=== PATIENT | male | born 1955 | race Caucasian/White ===

== ENCOUNTER 2020-12-03 09:20 | Emergency (ER) | payer OTHER ==
[2020-12-03 09:31] VITALS: PULSE 44
[2020-12-03] MEDS ORDERED: Aspirin 81 MG Tab.Chew PO ONE (09:38)
[2020-12-03] MEDS ORDERED: Sodium Chloride 0.9% 10 ML Syringe FLUSH PRN (09:38)
--- NOTE | 2020-12-03 09:57 | EDM.PDOC ---
ED HPI GENERAL MEDICAL PROBLEM - General Chief Complaint: Chest Pain Stated Complaint: CHEST PAIN/SOB/ARM PAIN Time Seen by Provider: 12/03/20 09:31 Source of Information: Reports: Patient, RN Notes Reviewed - History of Present Illness INITIAL COMMENTS - FREE TEXT/NARRATIVE: 64 yr old male with onset of R sided chest pain last evening, continues today. slight radiation to L arm. Was doing a lot of lifting a couple of days ago. No known hx of heart or lung problems or other known medical problems. He does smoke. Right Chest Pain Score (Numeric/FACES): 7 - Related Data Allergies Allergy/AdvReac Type Severity Reaction Status Date / Time No Known Allergies Allergy Verified 12/03/20 09:31 Home Meds: Home Meds . [No Known Home Meds] 09/16/15 [History] Past Medical History HEENT History: Reports: Impaired Vision Musculoskeletal History: Reports: Fracture - Past Surgical History Neurological Surgical History: Reports: Lumbar Spine Musculoskeletal Surgical History: Reports: Other (See Below) Other Musculoskeletal Surgeries/Procedures:: pins to the left hand and screws in right hand, leg surgery Social & Family History - Family History Family Medical History: No Pertinent Family History - Tobacco Use Tobacco Use Status *Q: Current Every Day Tobacco User Years of Tobacco use: 45 Packs/Tins Daily: 1 - Caffeine Use Caffeine Use: Reports: Coffee, Energy Drinks - Recreational Drug Use Recreational Drug Use: Yes Recreational Drug Type: Reports: Marijuana/Hashish ED ROS GENERAL - Review of Systems Review Of Systems: See Below Constitutional: Denies: Fever, Chills, Diaphoresis HEENT: Reports: No Symptoms Respiratory: Reports: Pleuritic Chest Pain (slight), Cough (occasional). Denies: Shortness of Breath Cardiovascular: Reports: Chest Pain GI/Abdominal: Denies: Abdominal Pain, Nausea, Vomiting Musculoskeletal: Reports: Arm Pain (mild R arm). Denies: Shoulder Pain Skin: Denies: Rash Neurological: Reports: Numbness (Mild R arm) ED EXAM, GENERAL - Physical Exam Exam: See Below General Appearance: Alert, No Apparent Distress Head: Atraumatic Neck: Supple Respiratory/Chest: No Respiratory Distress, Lungs Clear, Normal Breath Sounds, Other (Mild tenderness R ant mid chest). No: Rales, Rhonchi, Wheezing GI/Abdominal: Soft, Non-Tender Back Exam: No: CVA Tenderness (L), CVA Tenderness (R) Extremities: Normal Inspection. No: Pedal Edema, Leg Pain, Increased Warmth, Redness Neurological: Alert, Oriented, No Motor/Sensory Deficits Skin Exam: Warm, Dry, Normal Color #1 Interpretation EKG Date: 12/03/20 Rhythm: Other (sinus bradycardia) Rate (Beats/Min): 47 [place]: Normal P-Wave: Present QRS: Normal ST-T: Normal QT: Normal #2 Interpretation EKG Date: 12/03/20 Time: 10:45 Rhythm: NSR [place]: Normal P-Wave: Present QRS: Normal ST-T: Elevated (about [address] elevation leads II and III.) Course - Vital Signs Last Recorded V/S: Last Vital Signs Temp 97.4 F 12/03/20 11:10 Pulse 44 L 12/03/20 09:26 Resp 15 12/03/20 11:10 BP 139/79 12/03/20 11:10 Pulse Ox 98 12/03/20 11:10 - Orders/Labs/Meds Orders: Active Orders 24 hr Category Date Time Status Peripheral IV Insertion Adult [OM.PC] Stat Oth 12/03/20 09:37 Ordered Labs: Laboratory Tests 12/03/20 12/03/20 Range/Units 09:25 09:25 WBC 11.17 H (4.23-9.07) K/mm3 RBC 5.37 (4.63-6.08) M/mm3 Hgb 17.8 H (13.7-17.5) gm/dl Hct 53.1 H (40.1-51.0) % MCV 98.9 H (79.0-92.2) fl MCH 33.1 H (25.7-32.2) pg MCHC 33.5 (32.2-35.5) g/dl RDW Std Deviation 53.3 H (35.1-43.9) fL Plt Count 277 (163-337) K/mm3 MPV 11.0 (9.4-12.3) fl Neut % (Auto) 78.8 H (34.0-67.9) % Lymph % (Auto) 9.8 L (21.8-53.1) % [place] % (Auto) 10.4 (5.3-12.2) % Eos % (Auto) 0.4 L (0.8-7.0) Baso % (Auto) 0.4 (0.1-1.2) % Neut # (Auto) 8.80 H (1.78-5.38) K/mm3 Lymph # (Auto) 1.10 L (1.32-3.57) K/mm3 [place] # (Auto) 1.16 H (0.30-0.82) K/mm3 Eos # (Auto) 0.05 (0.04-0.54) K/mm3 Baso # (Auto) 0.04 (0.01-0.08) K/mm3 Manual Slide Review Abnormal smear Sodium 139 (136-145) mEq/L Potassium 4.3 (3.5-5.1) mEq/L Chloride 103 (98-107) mEq/L Carbon Dioxide 26 (21-32) mEq/L Anion Gap 14.3 (5-15) BUN 7 (7-18) mg/dL Creatinine 0.9 (0.7-1.3) mg/dL Est Cr Clr Drug Dosing 72.84 mL/min Estimated GFR (MDRD) > 60 (>60) mL/min BUN/Creatinine Ratio 7.8 L (14-18) Glucose 124 H (70-99) mg/dL Calcium 8.8 (8.5-10.1) mg/dL Total Bilirubin 0.3 (0.2-1.0) mg/dL AST 97 H (15-37) U/L ALT 40 (16-63) U/L Alkaline Phosphatase 101 (46-116) U/L Troponin I 5.757 H* (0.00-0.056) ng/mL Total Protein 7.5 (6.4-8.2) g/dl Albumin 4.0 (3.4-5.0) g/dl Globulin 3.5 gm/dL Albumin/Globulin Ratio 1.1 (1-2) Meds: Medications Discontinued Medications Generic Name Dose Route Start Last Admin Trade Name Freq PRN Reason Stop Dose Admin Aspirin 324 mg 12/03/20 09:38 12/03/20 09:52 Aspirin 81 Mg Tab.Chew PO 12/03/20 09:39 324 mg ONETIME ONE Administration Heparin Sodium (Porcine) 3,600 units 12/03/20 10:23 12/03/20 10:30 Heparin Sodium 5,000 Units/Ml Vial IVPUSH 12/03/20 10:24 3,600 units .BOLUS ONE Administration Nitroglycerin/Dextrose 25 mg in 250 mls @ 3 mls/hr 12/03/20 10:15 12/03/20 10:32 Nitroglycerin 25 Mg/D5w 250 Ml IV 5 mcg/min TITRATE QI 3 mls/hr Administration Protocol 5 MCG/MIN Heparin Sodium/Dextrose 25,000 units in 500 mls @ 14.522 mls/hr 12/03/20 10:30 12/03/20 10:31 Heparin 25,000 Units In D5w 500 Ml IV 12 units/kg/hr TITRATE QI 14.522 mls/hr Administration Protocol 12 UNITS/KG/HR Sodium Chloride 1,000 mls @ 150 mls/hr 12/03/20 10:45 Normal Saline IV ASDIRECTED QI Sodium Chloride 10 ml 12/03/20 09:38 12/03/20 09:55 Sodium Chloride 0.9% 10 Ml Syringe FLUSH 10 ml ASDIRECTED PRN Administration Keep Vein Open - Re-Assessments/Exams Free Text/Narrative Re-Assessment/Exam: 12/03/20 10:30. EKG shows slight st elevation, about 0.5 mm leads II and III. Trop has come back elevated at 5.76. CXR nl. Does not look uncomfortable but does still rate the pain a 5. Have ordered nitro drip and heparin for nonStemi protocol. [facility] unable to transfer "until this evening". [facility] unavailable today. Carmelo is coming down to do that. He will go by ground ambulance to [facility] ED, Dr Dobson accepting Phys. Departure - Departure Time of Disposition: 10:41 Disposition: DC/Tfer to Acute Hospital 02 Reason for Transfer *Q: Primary PCI Indicated Condition: Serious Clinical Impression: Acute coronary syndrome Referrals: PCP,None [Primary Care Provider] - Forms: ED Department Discharge Sepsis Event Note (ED) - Evaluation Sepsis Screening Result: No Definite Risk - Focused Exam Vital Signs: Vital Signs Temp Pulse Resp BP Pulse Ox 12/03/20 11:10 97.4 F 15 139/79 98 12/03/20 10:46 18 152/73 H 97 12/03/20 09:26 97.2 F 44 L 16 142/86 H 99 - My Orders Last 24 Hours: My Active Orders 12/03/20 09:37 Peripheral IV Insertion Adult [OM.PC] Stat - Assessment/Plan Last 24 Hours: My Active Orders 12/03/20 09:37 Peripheral IV Insertion Adult [OM.PC] Stat
[2020-12-03] MEDS ORDERED: Nitroglycerin/D5W 25 MG/250 ML BOTTLE IV SCH (10:15)
[2020-12-03] MEDS ORDERED: Heparin Sodium 5,000 Units/ML Vial IVPUSH ONE (10:23)
[2020-12-03] MEDS ORDERED: Heparin Sodium/D5W 25,000 UNITS/500 ML BAG IV SCH (10:30)
--- NOTE | 2020-12-03 10:35 | CR ---
Chest: Portable view of the chest was obtained. Comparison: No prior chest x-ray is available, prior right rib exam of 08/16/13. Heart size and mediastinum are normal. Lungs are clear with no acute parenchymal change. No acute osseous finding is seen. Impression: 1. Nothing acute is seen on portable chest x-ray. Diagnostic code #1
[2020-12-03] MEDS ORDERED: Sodium Chloride 0.9% 1,000 ML IV SCH (10:45)
[2020-12-03 11:24] VITALS: BP 139/79
== END 2020-12-03 11:10 ==
LOC: JD.ED 09:20
DX: I24.9 Acute ischemic heart disease, unspecified (principal); Z72.0 Tobacco use
CPT/HCPCS: 36415; 71045; 80053; 84484; 85025; 93005; 96365; 96368; 99285; A9270; J1644; J3490; 93010

== ENCOUNTER 2020-12-25 09:31 | Emergency (ER) | payer OTHER ==
[2020-12-25 09:44] VITALS: BP 151/80; PULSE 70
[2020-12-25] MEDS ORDERED: Sodium Chloride 0.9% 10 ML Syringe FLUSH PRN (09:49)
[2020-12-25] MEDS ORDERED: Nitroglycerin 2% Oint 1 GM UD Packet TOP ONE (09:50)
--- NOTE | 2020-12-25 09:58 | EDM.PDOC ---
ED HPI GENERAL MEDICAL PROBLEM - General Chief Complaint: Chest Pain Stated Complaint: SOB CHEST PAIN Time Seen by Provider: 12/25/20 09:42 Source of Information: Reports: Patient, RN Notes Reviewed - History of Present Illness INITIAL COMMENTS - FREE TEXT/NARRATIVE: 65 yr old male had onset of R chest pain about 3 days ago, was seen at the clinic 2 days ago and things checked out "OK". The discomfort continues, worse yesterday and today. Mainly R upper chest, worse to move R arms up or back. Has not been recently ill with cough, fever or difficulty breathing. He did have a nonstemi PR just over 3 weeks ago. Had 1 stent placed. Released from hospital a day or 2 later. Right Upper Chest Pain Score (Numeric/FACES): 7 - Related Data Allergies Allergy/AdvReac Type Severity Reaction Status Date / Time No Known Allergies Allergy Verified 12/25/20 09:44 Home Meds: Home Meds Aspirin 81 mg PO DAILY 12/25/20 [History] Losartan [Cozaar] 25 mg PO DAILY 12/25/20 [History] Prasugrel HCl [Effient] 10 mg PO DAILY 12/25/20 [History] atorvaSTATin [Lipitor] 20 mg PO BEDTIME 12/25/20 [History] Past Medical History HEENT History: Reports: Impaired Vision Cardiovascular History: Reports: PR Musculoskeletal History: Reports: Fracture - Past Surgical History Cardiovascular Surgical History: Reports: Coronary Artery Stent Neurological Surgical History: Reports: Lumbar Spine Musculoskeletal Surgical History: Reports: Other (See Below) Other Musculoskeletal Surgeries/Procedures:: pins to the left hand and screws in right hand, leg surgery Social & Family History - Family History Family Medical History: No Pertinent Family History - Tobacco Use Tobacco Use Status *Q: Current Every Day Tobacco User Years of Tobacco use: 40 Packs/Tins Daily: 1 - Caffeine Use Caffeine Use: Reports: Coffee, Energy Drinks - Recreational Drug Use Recreational Drug Use: Yes Recreational Drug Type: Reports: Marijuana/Hashish ED ROS GENERAL - Review of Systems Review Of Systems: See Below Constitutional: Denies: Fever, Chills, Diaphoresis HEENT: Reports: No Symptoms Respiratory: Reports: Cough. Denies: Shortness of Breath, Pleuritic Chest Pain Cardiovascular: Reports: Chest Pain GI/Abdominal: Denies: Abdominal Pain, Nausea, Vomiting Musculoskeletal: Denies: Shoulder Pain, Arm Pain, Back Pain Skin: Reports: No Symptoms Neurological: Reports: No Symptoms ED EXAM, GENERAL - Physical Exam Exam: See Below General Appearance: Alert, No Apparent Distress Head: Atraumatic Neck: Supple, Other (No JVD) Respiratory/Chest: No Respiratory Distress, Lungs Clear, Normal Breath Sounds, Other (R upper chest wall very tender, has marked R upper chest pain with abduction, moving arm up or up and back). No: Rhonchi, Wheezing #1 Interpretation EKG Date: 12/25/20 Rhythm: NSR [place]: Normal P-Wave: Present QRS: Other (q waves inf. leads) ST-T: Normal QT: Normal Course - Vital Signs Last Recorded V/S: Last Vital Signs Temp 98.2 F 12/25/20 09:41 Pulse 70 12/25/20 09:41 Resp 16 12/25/20 09:41 BP 151/80 H 12/25/20 09:41 Pulse Ox 98 12/25/20 09:41 - Orders/Labs/Meds Orders: Active Orders 24 hr Category Date Time Status EKG Documentation Completion [RC] ASDIRECTED Care 12/25/20 09:58 Active Peripheral IV Care [RC] . DIRECTED Care 12/25/20 09:50 Active Chest 1V Frontal [CR] Stat Exams 12/25/20 09:50 Taken Sodium Chloride 0.9% [Saline Flush] Med 12/25/20 09:49 Active 10 ml FLUSH ASDIRECTED PRN Peripheral IV Insertion Adult [OM.PC] Stat Oth 12/25/20 09:50 Ordered EKG 12 Lead [EK] Stat Ther 12/25/20 09:58 Ordered Medication Orders Sodium Chloride (Sodium Chloride 0.9% 10 Ml Syringe) 10 ml FLUSH ASDIRECTED PRN PRN Reason: Keep Vein Open Last Admin: 12/25/20 10:25 Dose: 10 ml Documented by: CHET Labs: Laboratory Tests 12/25/20 12/25/20 12/25/20 Range/Units 09:55 09:55 12:00 WBC 7.80 (4.23-9.07) K/mm3 RBC 5.23 (4.63-6.08) M/mm3 Hgb 17.1 (13.7-17.5) gm/dl Hct 50.8 (40.1-51.0) % MCV 97.1 H (79.0-92.2) fl MCH 32.7 H (25.7-32.2) pg MCHC 33.7 (32.2-35.5) g/dl RDW Std Deviation 48.5 H (35.1-43.9) fL Plt Count 285 (163-337) K/mm3 MPV 10.9 (9.4-12.3) fl Neut % (Auto) 60.5 (34.0-67.9) % Lymph % (Auto) 24.4 (21.8-53.1) % [place] % (Auto) 11.3 (5.3-12.2) % Eos % (Auto) 2.7 (0.8-7.0) Baso % (Auto) 0.8 (0.1-1.2) % Neut # (Auto) 4.73 (1.78-5.38) K/mm3 Lymph # (Auto) 1.90 (1.32-3.57) K/mm3 [place] # (Auto) 0.88 H (0.30-0.82) K/mm3 Eos # (Auto) 0.21 (0.04-0.54) K/mm3 Baso # (Auto) 0.06 (0.01-0.08) K/mm3 Sodium 140 (136-145) mEq/L Potassium 4.2 (3.5-5.1) mEq/L Chloride 103 (98-107) mEq/L Carbon Dioxide 27 (21-32) mEq/L Anion Gap 14.2 (5-15) BUN 15 (7-18) mg/dL Creatinine 1.0 (0.7-1.3) mg/dL Est Cr Clr Drug Dosing 64.52 mL/min Estimated GFR (MDRD) > 60 (>60) mL/min BUN/Creatinine Ratio 15.0 (14-18) Glucose 114 H (70-99) mg/dL Calcium 9.1 (8.5-10.1) mg/dL Total Bilirubin 0.5 (0.2-1.0) mg/dL AST 31 (15-37) U/L ALT 52 (16-63) U/L Alkaline Phosphatase 93 (46-116) U/L Troponin I < 0.017 < 0.017 (0.00-0.056) ng/mL Total Protein 7.4 (6.4-8.2) g/dl Albumin 3.8 (3.4-5.0) g/dl Globulin 3.6 gm/dL Albumin/Globulin Ratio 1.1 (1-2) Meds: Medications Generic Name Dose Route Start Last Admin Trade Name Aysha PRN Reason Stop Dose Admin Sodium Chloride 10 ml 12/25/20 09:49 12/25/20 10:25 Sodium Chloride 0.9% 10 Ml Syringe FLUSH 10 ml ASDIRECTED PRN Administration Keep Vein Open Discontinued Medications Generic Name Dose Route Start Last Admin Trade Name Aysha PRN Reason Stop Dose Admin Nitroglycerin 1 gm 12/25/20 09:50 12/25/20 10:15 Nitroglycerin 2% Oint 1 Gm Ud Packet TOP 12/25/20 09:51 1 gm ONETIME ONE Administration - Re-Assessments/Exams Free Text/Narrative Re-Assessment/Exam: 12/25/20 11:25. trop 0.17. He does have definite R chest wall tenderness and increased pain with abduction and raising R arm. With his cardiac hx will do a repeat trop to be extra safe. 12/25/20 12:58. Repeat trop also normal. Discharge instr. as documented. Departure - Departure Time of Disposition: 12:59 Disposition: Home, Self-Care 01 Condition: Fair Clinical Impression: Atypical chest pain, Chest wall pain Referrals: Lorin Hanna MD [Primary Care Provider] - Forms: ED Department Discharge Additional Instructions: No heavy lifting for 1 week or until R chest discomfort has completely resolved. Alternate ice and heat as needed. Continue current medications. See Dr Westfall as needed, See Cardiology as needed. Return to ED as needed if symptoms worsening in any way. Sepsis Event Note (ED) - Evaluation Sepsis Screening Result: No Definite Risk - Focused Exam Vital Signs: Vital Signs Temp Pulse Resp BP Pulse Ox 12/25/20 09:41 98.2 F 70 16 151/80 H 98 - My Orders Last 24 Hours: My Active Orders 12/25/20 09:49 Sodium Chloride 0.9% [Saline Flush] 10 ml FLUSH ASDIRECTED PRN 12/25/20 09:50 Peripheral IV Care [RC] . DIRECTED Chest 1V Frontal [CR] Stat Peripheral IV Insertion Adult [OM.PC] Stat 12/25/20 09:58 EKG Documentation Completion [RC] ASDIRECTED EKG 12 Lead [EK] Stat - Assessment/Plan Last 24 Hours: My Active Orders 12/25/20 09:49 Sodium Chloride 0.9% [Saline Flush] 10 ml FLUSH ASDIRECTED PRN 12/25/20 09:50 Peripheral IV Care [RC] . DIRECTED Chest 1V Frontal [CR] Stat Peripheral IV Insertion Adult [OM.PC] Stat 12/25/20 09:58 EKG Documentation Completion [RC] ASDIRECTED EKG 12 Lead [EK] Stat
--- NOTE | 2020-12-25 14:08 | CR ---
Chest: Portable view of the chest was obtained. Comparison: Previous chest x-ray 12/03/20. Heart size and mediastinum are normal. Lungs are clear with no acute parenchymal change. Slight scoliosis is noted within the spine. Mild scattered disc space narrowing is noted within the spine with slight osteophytes. Impression: 1. Findings which are believed to be incidental. 2. Nothing acute is seen on portable chest x-ray. Diagnostic code #2
== END 2020-12-25 13:15 | disposition home or self-care (01) ==
LOC: JD.ED 09:31
DX: R07.89 Other chest pain (principal); I25.2 Old myocardial infarction; Z79.82 Long term (current) use of aspirin; Z79.899 Other long term (current) drug therapy; Z72.0 Tobacco use
CPT/HCPCS: 36415; 71045; 80053; 84484; 85025; 93005; 99285; A9270; 93010; 99283